=== PATIENT | female | born 1955 | race Caucasian/White ===

== ENCOUNTER 2020-05-20 08:39 | Day surgery (SDC) | payer BC, MEDICARE, OTHER ==
[2020-05-20] MEDS ORDERED: Propofol 200 MG/20 ML SDV IV ONE (08:40)
[2020-05-20] MEDS ORDERED: Sodium Chloride 0.9% 10 ML Syringe FLUSH PRN (09:30)
[2020-05-20] MEDS ORDERED: Lactated Ringers 1,000 ML IV SCH (09:30)
--- NOTE | 2020-05-20 10:25 | PCM.OPNOTE ---
- General Post-Op/Procedure Note Date of Surgery/Procedure: 05/20/20 Operative Procedure(s): c scope Findings: normal exam Pre Op Diagnosis: colon cancer screening Post-Op Diagnosis: normal exam Anesthesia Technique: MAC Primary Surgeon: Arpit Tirado Anesthesia Provider: Ramya Mullins Pathology: none Complications: None Condition: Good Free Text/Narrative:: see dictation
--- NOTE | 2020-05-22 00:49 | OR ---
DATE OF OPERATION: 05/20/2020 SURGEON: Arpit Tirado MD PROCEDURE PERFORMED: Colonoscopy. PREOPERATIVE DIAGNOSIS: Need for colon cancer screening. POSTOPERATIVE DIAGNOSIS: Normal exam. INDICATIONS FOR PROCEDURE: This is a 65-year-old white female, who presents for a colonoscopy to screen for colon cancer. She was offered and accepted same. DESCRIPTION OF OPERATION: After an excellent IV sedation was administered, digital rectal exam was performed. No marked abnormality was noted. Flexible colonoscope was inserted and advanced to the cecum. Prep was excellent. Following findings were noted: Ascending colon, unremarkable. Transverse colon, unremarkable. Descending colon, unremarkable. Sigmoid and rectum, unremarkable. Colon was deflated as the scope was removed. Patient tolerated the procedure well, was taken to recovery. RECOMMENDATIONS: Repeat colonoscopy in 10 years. /[id number] /MODL
== END 2020-05-20 11:12 | disposition home or self-care (01) ==
LOC: FB.SDS 08:39
PROVIDERS: ATTEND Surgery
DX: Z12.11 Encounter for screening for malignant neoplasm of colon (principal); E03.9 Hypothyroidism, unspecified; E66.9 Obesity, unspecified; Z79.890 Hormone replacement therapy; Z87.891 Personal history of nicotine dependence
CPT/HCPCS: 00812; G0121; J2704; J7120

== ENCOUNTER 2021-11-27 11:16 | Emergency (ER) | payer MEDICARE | END 2021-11-27 12:20 | disposition home or self-care (01) | LOC: FB.ED 11:16 | DX: S09.90XA Unspecified injury of head, initial encounter (principal); E03.9 Hypothyroidism, unspecified; Z79.899 Other long term (current) drug therapy; W22.09XA Striking against other stationary object, initial encounter; Y93.89 Activity, other specified | CPT/HCPCS: 70450; 72125; 99283-25 ==